=== PATIENT | male | born 1965 | race Caucasian/White ===

== ENCOUNTER 2023-01-18 10:19 | Emergency (ER) | payer OTHER, SELFPAY ==
[2023-01-18 10:20] VITALS: BP 102/72; PULSE 64; RESP 16; TEMP 36.4; O2SAT 100
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
[2023-01-18] MEDS: TETANUS,DIPHTHERIA,AC PERTUSSIS ADULT (0.5 ML) BOOSTRIX IM (11:20)
--- NOTE | 2023-01-18 19:09 | PC.NURSE ---
1050- VEST PRESSER in attempt to drain abscess was able to get a wound culture.
== END 2023-01-18 11:28 | disposition home or self-care (01) ==
PROVIDERS: Emergency Provider Registered Nurse
DX: L02.212 Cutaneous abscess of back [any part, except buttock and flank] (principal); Z23 Encounter for immunization
CPT/HCPCS: 10060; 87070; 87075; 87147; 87181; 87186; 87205; 90715; 99213; G0463